=== PATIENT | male | born 1965 | race Hispanic/Latino ===

== ENCOUNTER 2021-07-14 13:54 | Emergency (ER) | payer OTHER ==
[~2021-07-14] VITALS: Ht 172.7 cm; Wt 78.0 kg
[2021-07-14 13:57] VITALS: BP 129/67
[2021-07-14] MEDS ORDERED: KETOROLAC 30MG VIAL (30MG/ML) IM PRN (15:30)
[2021-07-14 15:49] LABS: APPEARANCE,URINE Clear (CLEAR); BILIRUBIN,URINE Negative (NEGATIVE); COLOR,URINE Yellow (YELLOW); GLUCOSE, URINE (UA) Negative (NEGATIVE); KETONES,URINE Negative (NEGATIVE); LEUKOCYTE ESTERASE ,URINE Trace (NEGATIVE); NITRATE,URINE Negative (NEGATIVE); OCCULT BLOOD,URINE Large (NEGATIVE); PROTEIN,URINE Trace mg/dL (NEGATIVE)
[2021-07-14] MEDS ORDERED: NAPR-1196 PO (15:57)
[2021-07-14] MEDS ORDERED: CIPR-279 PO (15:57)
[2021-07-14 16:13] LABS: BACTERIA,URINE Rare /HPF (None Seen); RBC,URINE 26-50 /HPF (0-1); SQUAMOUS EPITHELIAL CELL,UR None Seen /HPF (0-2); WBC,URINE 0-1 /HPF (0-1)
== END 2021-07-14 16:22 | disposition home or self-care (01) ==
LOC: EDH 13:54
DX: N20.0 Calculus of kidney (principal)
CPT/HCPCS: 74176; 81001; 99284; J1885